=== PATIENT | female | born 1995 | race Two or more races ===

== ENCOUNTER 2016-09-10 11:20 | Emergency (ER) | payer SELFPAY ==
[~2016-09-10] VITALS: Ht 162.6 cm; Wt 61.2 kg
[2016-09-10 11:28] VITALS: BP 133/79
[2016-09-10] MEDS ORDERED: IV NS 0.9% 1,000 ML BAG IV ONE (12:30)
[2016-09-10] MEDS ORDERED: ONDANSETRON HCL/PF 4 MG/2 ML VIAL IV ONE (12:30)
[2016-09-10] MEDS ORDERED: KETOROLAC TROMETHAMINE INJ 30 MG/ML VIAL IV ONE (12:30)
[2016-09-10] MEDS ORDERED: diphenhydrAMINE HCL 50 MG/ML VIAL IV ONE (12:30)
[2016-09-10] MEDS ORDERED: ONDANSETRON HCL/PF 4 MG/2 ML VIAL ONE (12:31)
[2016-09-10] MEDS ORDERED: diphenhydrAMINE HCL 50 MG/ML VIAL ONE (12:31)
[2016-09-10] MEDS ORDERED: IV SET PRIMARY 1 EA INFUS.SET MC ONE (12:31)
[2016-09-10] MEDS ORDERED: IV NS 0.9% 1,000 ML ONE (12:31)
[2016-09-10] MEDS ORDERED: KETOROLAC TROMETHAMINE INJ 30 MG/ML VIAL ONE (12:31)
--- NOTE | 2016-09-10 12:55 | NUR ---
PT TO RADIOLOGY FOR HEAD CT VIA WHEELCHAIR.
== END 2016-09-10 14:03 | disposition home or self-care (01) ==
LOC: ER 11:20
DX: R51 Headache (principal)
CPT/HCPCS: 70450; 84703; 96374; 96375; 99284; A4606; J1200; J1885; J2405; J7030; Z7610

== ENCOUNTER 2017-03-23 20:01 | Emergency (ER) | payer MEDICAID ==
[~2017-03-23] VITALS: Ht 165.1 cm; Wt 61.2 kg
--- NOTE | 2017-03-23 22:15 | NUR ---
22 YO FEMALE BIB SELF; PT C/O MID ABD PAIN ON AND OFF X 1 WEEK AND STATES IT CABELLO. PT AMBULATED TO ER BED WITH STEADY GAIT, SKIN WARM AND DRY. RESP EVEN AND UNLABORED. AWAITING ORDERS FROM PROVIDER
[2017-03-23] MEDS ORDERED: ONDANSETRON HCL/PF 4 MG/2 ML VIAL ONE (22:28)
[2017-03-23] MEDS ORDERED: FAMOTIDINE/PF INJ 20 MG/2 ML VIAL IV ONE ×2 (22:29→22:30)
[2017-03-23] MEDS ORDERED: ONDANSETRON HCL/PF 4 MG/2 ML VIAL IVP ONE (22:30)
[2017-03-23] MEDS ORDERED: IV NS 0.9% 1,000 ML BAG IV ONE (22:30)
--- NOTE | 2017-03-23 22:31 | NUR ---
HOSPITAL PERSONNEL DIRECTOR AT BED SIDE FOR US
[2017-03-23 22:43] LABS: APPEARANCE,URINE CLEAR (CLEAR); BILIRUBIN,URINE NEGATIVE (NEGATIVE); BLOOD, URINE 2+ Ery/uL (NEGATIVE); COLOR,URINE YELLOW (YELLOW); KETONES,URINE NEGATIVE (NEGATIVE); LEUKOCYTE ESTERASE ,URINE NEGATIVE (NEGATIVE); NITRITE, URINE NEGATIVE (NEGATIVE); PROTEIN,URINE NEGATIVE (NEGATIVE); UGLUCOSE NEGATIVE (NEGATIVE); UROBILINOGEN,URINE 0.2 EU/dL (0.2)
[2017-03-23 22:54] LABS: BACTERIA,URINE None seen /HPF (None Seen); SQUAMOUS EPITHELIAL CELL,UR Moderate /HPF (None Seen)
--- NOTE | 2017-03-23 23:00 | NUR ---
20G RIGHT AC IV STARTED, BLOOD SAMPLE OBTAINED AND SENT TO LAB. MEDICATED PT ORDERED
[2017-03-23 23:03] LABS: BASOPHILS % (AUTO) 0.7 % (0.0-2.0); EOSINOPHILS # (AUTO) 0.1 /CMM (0.0-0.7); EOSINOPHILS % (AUTO) 1.4 % (0.0-6.0); HEMATOCRIT 42 % (33-45); HEMOGLOBIN 13.9 g/dL (11.5-14.8); LYMPHOCYTES # (AUTO) 2.1 /CMM (0.8-4.8); MEAN CORPUSCULAR HEMOGLOBIN 31 PG (26.0-33.0); MEAN CORPUSCULAR HGB CONC 34 g/dl (31.0-36.0); MEAN CORPUSCULAR VOLUME 92 fL (82-100); MONOCYTES # (AUTO) 0.6 /CMM (0.1-1.30); MONOCYTES % (AUTO) 9.5 % (2.0-12.0); NEUTROPHILS # (AUTO) 3.2 /CMM (1.8-8.9); NEUTROPHILS % (AUTO) 53.4 % (43.0-81.0); PLATELET COUNT (AUTO) 196 /CMM (150-450); RDW COEFFICIENT OF VARIATION 12.3 (11.5-15.0); WHITE BLOOD COUNT (AUTO) 6.1 K/uL (4.3-11.0)
[2017-03-23 23:16] LABS: CALCIUM, SERUM 9.3 mg/dL (8.5-10.1); CREATININE 0.7 mg/dL (0.6-1.3); POTASSIUM 3.8 mmol/L (3.5-5.1)
[2017-03-23 23:23] LABS: ALBUMIN 4.1 g/dL (3.4-5.0); BILIRUBIN,DIRECT 0.1 mg/dL (0.0-0.2); BILIRUBIN,TOTAL 0.3 mg/dL (0.2-1.0); TOTAL PROTEIN, SERUM 7.9 g/dL (6.4-8.2)
[2017-03-23] MEDS ORDERED: ACETAMINOPHEN ES 500 MG TABLET ONE (23:28)
[2017-03-23] MEDS ORDERED: ACETAMINOPHEN ES 500 MG TABLET PO ONE (23:30)
--- NOTE | 2017-03-23 23:33 | NUR ---
AMDIN 1GM OF TYLENOL.
[2017-03-23 23:50] VITALS: BP 119/75
--- NOTE | 2017-03-23 23:52 | NUR ---
Patient discharged to home in stable condition. Written and verbal after care instructions given. Patient verbalizes understanding of instruction.IV removed. Catheter intact and site benign. Pressure and 4x4 applied to site. No bleeding noted. PT ambulatory with a steady gait.
== END 2017-03-23 23:52 | disposition home or self-care (01) ==
LOC: ER 20:05
DX: K29.70 Gastritis, unspecified, without bleeding (principal); G43.909 Migraine, unspecified, not intractable, without status migrainosus
CPT/HCPCS: 36415; 76705; 80048; 80076; 81001; 83690; 84703; 85025; 96361; 96374; 96375; 99285; A4606; J2405; J3490; J7030; Z7610; 81000-TC

== ENCOUNTER 2017-08-12 13:52 | Emergency (ER) | payer BC ==
[~2017-08-12] VITALS: Ht 162.6 cm; Wt 59.0 kg
[2017-08-12 13:59] VITALS: BP 98/70
--- NOTE | 2017-08-12 14:30 | NUR ---
Patient eloped from facility. ER MD notified.
== END 2017-08-12 14:30 | disposition home or self-care (01) ==
LOC: ER 14:01
DX: Z53.21 Procedure and treatment not carried out due to patient leaving prior to being seen by health care provider (principal)
CPT/HCPCS: A4606; Z7610

== ENCOUNTER 2017-10-18 22:14 | Emergency (ER) | payer BC, MEDICAID ==
[~2017-10-18] VITALS: Ht 165.1 cm; Wt 56.7 kg
[2017-10-18 22:17] VITALS: BP 137/91
--- NOTE | 2017-10-18 22:47 | NUR ---
yas at bs.
== END 2017-10-18 23:23 | disposition home or self-care (01) ==
LOC: ER 22:19
DX: F41.9 Anxiety disorder, unspecified (principal); G43.909 Migraine, unspecified, not intractable, without status migrainosus
CPT/HCPCS: 71045-TC; A4606; Z7610

== ENCOUNTER 2018-01-24 22:56 | Emergency (ER) | payer MEDICAID ==
[~2018-01-24] VITALS: Ht 165.1 cm; Wt 57.6 kg
[2018-01-24] MEDS ORDERED: IV NS 0.9% 500 ML BAG IV ONE (23:30)
--- NOTE | 2018-01-24 23:30 | NUR ---
PT BIB SELF. PT C/O VAGINAL BLEEDING WITH CLOTS FOR 3WEEKS, ABD CRAMPING, AND NAUSEA. PT TOOK PILL 3 WEEKS AGO. PT AOX4. RESPIRATIONS EVEN AND UNLABORED. PT PLACED ON MONITOR
--- NOTE | 2018-01-24 23:45 | NUR ---
IV PLACED ON RIGHT AC. 18G. IV END TIME 0952
[2018-01-24 23:56] LABS: BASOPHILS % (AUTO) 0.8 % (0.0-2.0); EOSINOPHILS % (AUTO) 1.2 % (0.0-6.0); HEMATOCRIT 38 % (33-45); HEMOGLOBIN 12.7 g/dL (11.5-14.8); LYMPHOCYTES % (AUTO) 22.1 % (20.0-44.0); MEAN CORPUSCULAR HEMOGLOBIN 32 PG (26.0-33.0); MEAN CORPUSCULAR HGB CONC 34 g/dl (31.0-36.0); MEAN CORPUSCULAR VOLUME 96 fL (82-100); MONOCYTES # (AUTO) 0.3 /CMM (0.1-1.30); MONOCYTES % (AUTO) 7.2 % (2.0-12.0); NEUTROPHILS # (AUTO) 3.1 /CMM (1.8-8.9); NEUTROPHILS % (AUTO) 68.7 % (43.0-81.0); PLATELET COUNT (AUTO) 244 /CMM (150-450); RDW COEFFICIENT OF VARIATION 12.5 (11.5-15.0); RED BLOOD CELL COUNT(AUTO) 3.92 MIL/uL (4.0-5.2); WHITE BLOOD COUNT (AUTO) 4.5 K/uL (4.3-11.0)
[2018-01-24] MEDS ORDERED: ONDANSETRON HCL/PF 4 MG/2 ML VIAL ONE (23:56)
[2018-01-25] MEDS ORDERED: ONDANSETRON HCL/PF 4 MG/2 ML VIAL IV ONE
[2018-01-25 00:07] LABS: CALCIUM, SERUM 8.8 mg/dL (8.5-10.1); CREATININE 0.8 mg/dL (0.6-1.3); POTASSIUM 3.7 mmol/L (3.5-5.1)
[2018-01-25 00:11] LABS: INR 1.12 (0.87-1.13)
[2018-01-25 00:20] LABS: BILIRUBIN,DIRECT 0.1 mg/dL (0.0-0.2); BILIRUBIN,TOTAL 0.3 mg/dL (0.2-1.0); TOTAL PROTEIN, SERUM 7.7 g/dL (6.4-8.2)
--- NOTE | 2018-01-25 00:20 | NUR ---
URINE COLLECTED. LAB CALLED FOR FILLING LAYER UP
[2018-01-25 00:49] LABS: APPEARANCE,URINE CLEAR (CLEAR); BILIRUBIN,URINE NEGATIVE (NEGATIVE); BLOOD, URINE NEGATIVE Ery/uL (NEGATIVE); COLOR,URINE YELLOW (YELLOW); KETONES,URINE NEGATIVE (NEGATIVE); LEUKOCYTE ESTERASE ,URINE NEGATIVE (NEGATIVE); NITRITE, URINE NEGATIVE (NEGATIVE); PH,URINE 6.5 (5.0-8.0); PROTEIN,URINE NEGATIVE (NEGATIVE); UGLUCOSE NEGATIVE (NEGATIVE); UROBILINOGEN,URINE 0.2 EU/dL (0.2)
[2018-01-25] MEDS ORDERED: KETOROLAC TROMETHAMINE INJ 30 MG/ML VIAL IV ONE (01:00)
[2018-01-25] MEDS ORDERED: KETOROLAC TROMETHAMINE INJ 30 MG/ML VIAL ONE (01:16)
--- NOTE | 2018-01-25 01:17 | NUR ---
ULTRASOUND AT BEDSIDE
--- NOTE | 2018-01-25 02:35 | NUR ---
IV removed. Catheter intact and site benign. Pressure and 4x4 applied to site. No bleeding noted. Patient discharged to home in stable condition. Written and verbal after care instructions given. Patient verbalizes understanding of instruction. ambulatory with a steady gait noted. pt aaox4 no acute distress noted, resp even and unlabored. pt s/o at bedside to take pt home.
[2018-01-25 02:36] VITALS: BP 123/67
== END 2018-01-25 02:38 | disposition home or self-care (01) ==
LOC: ER 23:08
DX: N93.8 Other specified abnormal uterine and vaginal bleeding (principal); R42 Dizziness and giddiness
CPT/HCPCS: 36415; 76856; 80048; 80076; 81001; 84702; 85025; 85730; 86850; 96361; 96374; 96375; 99285; A4606; J1885; J2405; J7040; Z7610; 81000-TC

== ENCOUNTER 2018-06-04 22:51 | Emergency (ER) | payer BC, MEDICAID ==
[~2018-06-04] VITALS: Ht 165.1 cm; Wt 61.2 kg
[2018-06-04 22:59] VITALS: BP 114/64
== END 2018-06-04 23:36 | disposition home or self-care (01) ==
LOC: ER 22:54
DX: H00.023 Hordeolum internum right eye, unspecified eyelid (principal)

== ENCOUNTER 2018-09-04 18:20 | Emergency (ER) | payer BC ==
[~2018-09-04] VITALS: Ht 165.1 cm; Wt 54.9 kg
[2018-09-04 18:27] VITALS: BP 100/63
[2018-09-04 19:07] LABS: APPEARANCE,URINE Clear (CLEAR); BILIRUBIN,URINE Negative (NEGATIVE); BLOOD, URINE Small Ery/uL (NEGATIVE); COLOR,URINE Yellow (YELLOW); KETONES,URINE Negative (NEGATIVE); LEUKOCYTE ESTERASE ,URINE Negative (NEGATIVE); NITRITE, URINE Negative (NEGATIVE); PROTEIN,URINE Negative (NEGATIVE); UGLUCOSE Negative (NEGATIVE); UROBILINOGEN,URINE 0.2 EU/dL (0.2)
[2018-09-04 19:25] LABS: BACTERIA,URINE Few /HPF (None Seen); SQUAMOUS EPITHELIAL CELL,UR Many /HPF (None Seen); URINE AMORPHOUS URATE Few /HPF (None Seen); WBC,URINE 0-2 /HPF (0-3)
[2018-09-04] MEDS ORDERED: ACETAMINOPHEN ES 500 MG TABLET PO ONE (19:30)
[2018-09-04] MEDS ORDERED: ACETAMINOPHEN ES 500 MG TABLET ONE (19:33)
== END 2018-09-04 20:27 | disposition home or self-care (01) ==
LOC: ER 18:23
DX: N93.8 Other specified abnormal uterine and vaginal bleeding (principal); J03.90 Acute tonsillitis, unspecified
CPT/HCPCS: 81000-TC; 84703-TC; 86403-TC; 87070-TC; 87081-TC; 87110-TC; 87210-TC; 87491; 87591

== ENCOUNTER 2019-03-10 14:56 | Emergency (ER) | payer BC ==
[~2019-03-10] VITALS: Ht 165.1 cm; Wt 57.6 kg
--- NOTE | 2019-03-10 15:22 | NUR ---
PT C/O THROAT PAIN x 5 DAYS, AFEBRILE. PT STATED SHE HIT HER HEAD WHILE MOVING. PT AAOX4, VSS, BREATHING EVEN AND UNLABORED W/ NO ACUTE DISTRESS NOTED, AMBULATORY W/ STEADY GAIT. PT CONNECTED TO THE MONITOR. WILL CONTINUE TO MONITOR.
[2019-03-10 15:35] VITALS: BP 104/72
--- NOTE | 2019-03-10 15:36 | NUR ---
Patient discharged to home in stable condition. Written and verbal after care instructions given. Patient verbalizes understanding of instruction.
== END 2019-03-10 15:36 | disposition home or self-care (01) ==
LOC: ER 14:56
DX: J04.0 Acute laryngitis (principal)

== ENCOUNTER 2019-04-23 19:25 | Emergency (ER) | payer BC ==
[~2019-04-23] VITALS: Ht 165.1 cm; Wt 60.8 kg
[2019-04-23 19:56] VITALS: BP 123/68
== END 2019-04-23 20:14 | disposition home or self-care (01) ==
LOC: ER 19:35
DX: S06.0X0A Concussion without loss of consciousness, initial encounter (principal); M54.2 Cervicalgia; M54.5 Low back pain; V49.49XA Driver injured in collision with other motor vehicles in traffic accident, initial encounter; Y93.89 Activity, other specified; Y92.413 State road as the place of occurrence of the external cause; Y99.8 Other external cause status

== ENCOUNTER 2019-06-11 11:51 | Emergency (ER) | payer BC, MEDICAID ==
[~2019-06-11] VITALS: Ht 165.1 cm; Wt 56.7 kg
[2019-06-11 12:41] LABS: APPEARANCE,URINE Clear (CLEAR); BILIRUBIN,URINE Negative (NEGATIVE); BLOOD, URINE Negative Ery/uL (NEGATIVE); COLOR,URINE Yellow (YELLOW); KETONES,URINE Negative (NEGATIVE); LEUKOCYTE ESTERASE ,URINE Negative (NEGATIVE); NITRITE, URINE Negative (NEGATIVE); PROTEIN,URINE Negative (NEGATIVE); UGLUCOSE Negative (NEGATIVE); UROBILINOGEN,URINE 0.2 EU/dL (0.2)
[2019-06-11 12:45] LABS: BASOPHILS # (AUTO) 0.1 /CMM (0.0-0.2); BASOPHILS % (AUTO) 3.2 % (0.0-2.0); HEMATOCRIT 43 % (33-45); HEMOGLOBIN 14.4 g/dL (11.5-14.8); LYMPHOCYTES # (AUTO) 0.9 /CMM (0.8-4.8); LYMPHOCYTES % (AUTO) 20.9 % (20.0-44.0); MEAN CORPUSCULAR HGB CONC 33 g/dl (31.0-36.0); MEAN CORPUSCULAR VOLUME 96 fL (82-100); MONOCYTES # (AUTO) 0.3 /CMM (0.1-1.30); NEUTROPHILS # (AUTO) 2.8 /CMM (1.8-8.9); NEUTROPHILS % (AUTO) 66.9 % (43.0-81.0); PLATELET COUNT (AUTO) 235 /CMM (150-450); RED BLOOD CELL COUNT(AUTO) 4.53 MIL/uL (4.0-5.2); WHITE BLOOD COUNT (AUTO) 4.2 K/uL (4.3-11.0)
[2019-06-11 12:55] LABS: CALCIUM, SERUM 9.2 mg/dL (8.5-10.1); CREATININE 0.7 mg/dL (0.6-1.3); POTASSIUM 3.9 mmol/L (3.5-5.1)
--- NOTE | 2019-06-11 12:55 | NUR ---
US TECH AT BEDSIDE.
[2019-06-11 13:30] VITALS: BP 115/59
== END 2019-06-11 13:31 | disposition home or self-care (01) ==
LOC: ER 11:51
DX: O20.0 Threatened abortion (principal); N64.4 Mastodynia; Z3A.00 Weeks of gestation of pregnancy not specified
CPT/HCPCS: 36415; 76856-TC; 80048-TC; 81000-TC; 84702-TC; 85025-TC

== ENCOUNTER 2019-06-14 18:57 | Inpatient (IN) | payer MEDICAID ==
[~2019-06-14] VITALS: Ht 167.6 cm; Wt 59.0 kg
[2019-06-14] MEDS ORDERED: IV NS 0.9% 1,000 ML BAG IV ONE (20:00)
[2019-06-14] MEDS ORDERED: ONDANSETRON HCL/PF 4 MG/2 ML VIAL IVP ONE (20:00)
[2019-06-14] MEDS ORDERED: MORPHINE SULFATE INJ 2 MG/ML DISP.SYRIN IV ONE ×2 (20:00→20:30)
[2019-06-14] MEDS ORDERED: MORPHINE SULFATE INJ 4 MG/ML DISP.SYRIN ONE ×2 (20:02→21:48)
[2019-06-14] MEDS ORDERED: ONDANSETRON HCL/PF 4 MG/2 ML VIAL ONE (20:02)
[2019-06-14 20:05] LABS: BASOPHILS # (AUTO) 0.1 /CMM (0.0-0.2); BASOPHILS % (AUTO) 1.4 % (0.0-2.0); HEMATOCRIT 43 % (33-45); HEMOGLOBIN 14.3 g/dL (11.5-14.8); LYMPHOCYTES # (AUTO) 1.4 /CMM (0.8-4.8); LYMPHOCYTES % (AUTO) 20.6 % (20.0-44.0); MEAN CORPUSCULAR HGB CONC 33 g/dl (31.0-36.0); MEAN CORPUSCULAR VOLUME 95 fL (82-100); MONOCYTES # (AUTO) 0.6 /CMM (0.1-1.30); MONOCYTES % (AUTO) 8.8 % (2.0-12.0); NEUTROPHILS # (AUTO) 4.7 /CMM (1.8-8.9); NEUTROPHILS % (AUTO) 68.2 % (43.0-81.0); PLATELET COUNT (AUTO) 239 /CMM (150-450); RED BLOOD CELL COUNT(AUTO) 4.51 MIL/uL (4.0-5.2); WHITE BLOOD COUNT (AUTO) 6.9 K/uL (4.3-11.0)
--- NOTE | 2019-06-14 20:11 | NUR ---
BIBS W/ BOYFRIEND. TO ER BED 16. AAOX4. NO RESP DISTRESS NOTED/ AMBULATORY. 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 PT REPORTS THAT PAIN IS SHARP RADIATING DOWN TO LEG AND BACK WHICH IS CAUSING HER BACK ACHE. PT RATES HER PAIN 9/10. PT REPORTS POSSIBLE , LAST MENSTRATION WAS 5 WEKS AGO. MANUELA OROURKE WAS AT BEDSIDE FOR EVAL. ORDERS RECEIVED, NOTD AND CARRIED OUT. IV LINE OBTIANED ON THE R AC 20G. BLOOD DRAWN AND GIVENT O PROCESS MECHANIC AT BEDSIDE. URINE SENT O LAB WELL
[2019-06-14 20:12] LABS: CREATININE 0.7 mg/dL (0.6-1.3); POTASSIUM 4.3 mmol/L (3.5-5.1)
[2019-06-14 20:17] LABS: APPEARANCE,URINE Clear (CLEAR); BILIRUBIN,URINE Negative (NEGATIVE); BLOOD, URINE Negative Ery/uL (NEGATIVE); COLOR,URINE Yellow (YELLOW); KETONES,URINE Negative (NEGATIVE); LEUKOCYTE ESTERASE ,URINE Negative (NEGATIVE); NITRITE, URINE Negative (NEGATIVE); PROTEIN,URINE Negative (NEGATIVE); UGLUCOSE Negative (NEGATIVE); UROBILINOGEN,URINE 0.2 EU/dL (0.2)
[2019-06-14] MEDS ORDERED: ACETAMINOPHEN ES 500 MG TABLET ONE (23:28)
[2019-06-14] MEDS ORDERED: Z GUARD REMEDY 2 OZ OINT TP PRN (23:30)
[2019-06-14] MEDS ORDERED: MAGNESIUM HYDROXIDE 30 ML UDC PO PRN (23:30)
[2019-06-14] MEDS ORDERED: ACETAMINOPHEN ES 500 MG TABLET PO ONE (23:30)
--- NOTE | 2019-06-14 23:35 | NUR ---
REPORT GIVEN TO SAIRA HURST FOR AXEL.
--- NOTE | 2019-06-14 23:45 | NUR ---
PT TRANSPORTED TO UNIT ON [facility] BY EMT. PT STABLE FOR TRANSPORT. NAD NOTED
[2019-06-14 23:50] VITALS: BP 115/77
[2019-06-15] MEDS ORDERED: MORPHINE SULFATE INJ 2 MG/ML DISP.SYRIN IV SCH
--- NOTE | 2019-06-15 | NUR ---
RECEIVE PT FROM [facility] AT 2340 PT A/O X4 IN NO APPARENT DISTRESS AT AT THIS TIME. HEAD TO TOE ASSESSMENT IS DONE SKIN IS INTACT. AM CARE RENDERED. VS STABLE. KEPT CLEAN, DRY AND COMFORTABLE. WILL CONTINUE TO MONITOR
[2019-06-15] MEDS: IV NS 0.9% 1,000 ML IV PRN (00:06)
--- NOTE | 2019-06-15 00:15 | NUR ---
BRITTNEY PEREZ PT COMPLAINING MORPHINE DOESN'T DO ANYTHING TO HER AND REQUESTING IF WE COULD CHANGE HER PAIN MEDICATION. WILL CONTINUE TO MONITOR PT
[2019-06-15] MEDS: HYDROMORPHONE 1 MG/1 ML DISP.SYRIN IV PRN ×5 (01:00→22:39)
[2019-06-15] MEDS: ONDANSETRON HCL/PF 4 MG/2 ML VIAL IVP PRN ×3 (01:05→18:29)
--- NOTE | 2019-06-15 01:36 | NUR ---
HOSPITALIST CALLED BACK PER HOSPITALIST ORDERED DILAUDID 1 MG IVP Q6HR PRN PAIN LEVEL 8-10 AND D/C MORPHINE 2MG IVP Q6HR READ BACK AND VERIFIED ORDERS NOTED AND CARRIED OUT
[2019-06-15] MEDS: ACETAMINOPHEN 325 MG TABLET PO PRN ×3 (03:21→20:29)
--- NOTE | 2019-06-15 03:30 | NUR ---
SEEN BY MS. PEREZ AT BEDSIDE PT ASKED IF SHE COULD CHANGE FREQUENCY OF IVP DILAUDID MEDICATION. PER ANA "NO AT THIS TIME". NOTED. EXPLAINED RISKS AND BENEFITS TO THE PT. PT VERBALIZED UNDERSTANDING
[2019-06-15] MEDS ORDERED: CT SWABBABLE VALVE TRANS SET 1 EA INFUS.SET MC ONE (03:39)
[2019-06-15] MEDS ORDERED: IOHEXOL-300 100 ML VIAL IV ONE (03:39)
--- NOTE | 2019-06-15 03:55 | NUR ---
FF. UP WITH CT STAT ORER PER CT RADIOLOGY KASSY THEY WILL CALL TO CELLAR PUMPER THE PT.
--- NOTE | 2019-06-15 06:32 | NUR ---
PT ASLEEP AND EASILY AWAKEN, STABLE AND NOT IN DISTRESS, MONITORED FOR PAIN. KEPT CLEAN, DRY AND COMFORTABLE. NOTED WITH SCANT VAGINAL BLEEDING HOSPITALIST AWARE. AWAITING CT SCAM WITH CONTRAST RESULT. SAFETY MEASURES AT ALL TIMES. WILL ENDORSE NEXT SHIFT
[2019-06-15 06:43] LABS: BASOPHILS % (AUTO) 0.7 % (0.0-2.0); EOSINOPHILS % (AUTO) 1.8 % (0.0-6.0); HEMATOCRIT 38 % (33-45); HEMOGLOBIN 12.9 g/dL (11.5-14.8); LYMPHOCYTES # (AUTO) 1.5 /CMM (0.8-4.8); LYMPHOCYTES % (AUTO) 25.4 % (20.0-44.0); MEAN CORPUSCULAR HGB CONC 34 g/dl (31.0-36.0); MEAN CORPUSCULAR VOLUME 95 fL (82-100); MONOCYTES # (AUTO) 0.6 /CMM (0.1-1.30); MONOCYTES % (AUTO) 10.3 % (2.0-12.0); NEUTROPHILS # (AUTO) 3.6 /CMM (1.8-8.9); NEUTROPHILS % (AUTO) 61.8 % (43.0-81.0); PLATELET COUNT (AUTO) 202 /CMM (150-450); RED BLOOD CELL COUNT(AUTO) 4.05 MIL/uL (4.0-5.2); WHITE BLOOD COUNT (AUTO) 5.7 K/uL (4.3-11.0)
--- NOTE | 2019-06-15 07:00 | NUR ---
BP 109/97 P 67 R 19 02 AT 100% R.A T 97.7
[2019-06-15 07:03] LABS: CALCIUM, SERUM 8.4 mg/dL (8.5-10.1); CREATININE 0.7 mg/dL (0.6-1.3); MAGNESIUM 2.1 mg/dL (1.8-2.4); PHOSPHORUS 3.7 mg/dL (2.5-4.9); POTASSIUM 3.5 mmol/L (3.5-5.1)
--- NOTE | 2019-06-15 07:21 | NUR ---
RN OPENING NOTE PT WAS RECEIVED IN BED AT LOWEST AND LOCKED POSITION WITH SIDE RAILS UP X2, A/OX4 BREATHING EVEN AND UNLABORED ON RA, NO S/S OF ANY DISTRESS BUT STILL HAS SOME COMPLAINTS OF PAIN AT THIS TIME, IV IS PATENT AND INTACT, AWAITING TO BE SEEN BY , SAFETY PRECAUTIONS IN PLACE, CALL LIGHT IN REACH, WILL MONITOR ACCORDINGLY
[2019-06-15 08:00] VITALS: BP 98/60
--- NOTE | 2019-06-15 09:30 | NUR ---
RN NOTE HOSPITALIST MALIKA FRIAS MADE AWARE OF PT STILL HAVING NAUSEA AND VOMITING AFTER ZOFRAN GIVEN AT 0700, ORDER RECEIVED FOR ONE TIME DOSE OF ZOFRAN 4MG, WILL IMPLEMENT AND CARRY OUT
[2019-06-15] MEDS ORDERED: ONDANSETRON HCL/PF 4 MG/2 ML VIAL IV PRN (10:30)
[2019-06-15 16:00] VITALS: BP 112/56
--- NOTE | 2019-06-15 17:55 | NUR ---
RN NOTE HOSPITALIST MALIKA FRIAS MADE AWARE OF PT STILL HAVING PAIN, ORDER TO CHANGE DILAUDID TO Q4H INSTEAD GIVEN, WILL IMPLEMENT AND CARRY OUT
--- NOTE | 2019-06-15 19:06 | NUR ---
RN CLOSING NOTE PT IN BED AT LOWEST AND LOCKED POSITION WITH SIDE RAILS UP X2, A/OX4 BREATHING EVEN AND UNLABORED ON RA, NO S/S OF ANY DISTRESS, PAIN MEDS GIVEN FOR COMPLAINTS OF PAIN, IV IS PATENT AND INTACT, AWAITING TO BE SEEN BY , SAFETY PRECAUTIONS IN PLACE, CALL LIGHT IN REACH, ALL NEEDS ATTENDED TO, WILL ENDORSE TO NIGHT RN FOR AXEL.
--- NOTE | 2019-06-15 19:25 | NUR ---
RN OPEN NOTES RECEIVED PATIENT AWAKE IN BED WITH FAMILY AT BEDSIDE. A/OX4. NO SIGNS OF DISTRESS OR DISCOMFORT. BREATHING EVEN AND UNLABORED. STATES LL ABD 12/11, AT THIS TIME, PATIENT HAS RECEIVED PRN PAIN MEDS. IV ACCESS IN RAC WITH NS INFUSING, PATENT AND INTACT, NO SIGNS OF REDNESS OR INFILTRATION. BED IN LOW LOCKED POSITION WITH SIDE RAILS X2. CALL LIGHT WITHIN REACH. WILL CONTINUE TO MONITOR.
[2019-06-15 20:44] VITALS: BP 101/62
--- NOTE | 2019-06-15 22:39 | NUR ---
RN NOTES ADMINISTERED DILAUDID 1MG ORDERED FOR LLQ PAIN 11/11, AT PATIENT REQUEST. VSS. WILL CONTINUE TO MONITOR.
[2019-06-16 06:24] LABS: BASOPHILS % (AUTO) 0.9 % (0.0-2.0); EOSINOPHILS % (AUTO) 2.5 % (0.0-6.0); HEMATOCRIT 36 % (33-45); HEMOGLOBIN 12.2 g/dL (11.5-14.8); LYMPHOCYTES # (AUTO) 1.4 /CMM (0.8-4.8); LYMPHOCYTES % (AUTO) 32.4 % (20.0-44.0); MEAN CORPUSCULAR HGB CONC 34 g/dl (31.0-36.0); MEAN CORPUSCULAR VOLUME 95 fL (82-100); MONOCYTES # (AUTO) 0.3 /CMM (0.1-1.30); MONOCYTES % (AUTO) 7.9 % (2.0-12.0); NEUTROPHILS # (AUTO) 2.4 /CMM (1.8-8.9); NEUTROPHILS % (AUTO) 56.3 % (43.0-81.0); PLATELET COUNT (AUTO) 200 /CMM (150-450); RED BLOOD CELL COUNT(AUTO) 3.79 MIL/uL (4.0-5.2); WHITE BLOOD COUNT (AUTO) 4.2 K/uL (4.3-11.0)
[2019-06-16 06:47] LABS: CALCIUM, SERUM 8.7 mg/dL (8.5-10.1); CREATININE 0.6 mg/dL (0.6-1.3); POTASSIUM 3.8 mmol/L (3.5-5.1)
--- NOTE | 2019-06-16 07:09 | NUR ---
RN CLOSING NOTES PATIENT AWAKE LAYING IN BED. A/OX4. NO SIGNS OF DISTRESS OR DISCOMFORT. BREATHING EVEN AND UNLABORED. STATES LL ABD 5/10, AT THIS TIME AND TOLERABLE. IV ACCESS IN RAC WITH NS INFUSING, PATENT AND INTACT, NO SIGNS OF REDNESS OR INFILTRATION. ALL NEEDS MET. NO SIGNIFICANT CHANGES THROUGH THE NIGHT. BED IN LOW LOCKED POSITION WITH SIDE RAILS X2. CALL LIGHT WITHIN REACH. WILL ENDORSE TO AM SHIFT FOR AXEL.
[2019-06-16 08:00] VITALS: BP 103/69
--- NOTE | 2019-06-16 08:00 | NUR ---
RN NOTES RECEIVED PATIENT IN THE ROOM A/O X4, FEMALE ON ABNORMAL , BLOODY SPOTS ON PERINEAL PAD, LOWER ABDOMINAL PAIN , AND NAUSEATED. INFUSING NS AT 100 ML/HR ON RIGHT AC AREA INTACT. CALL LIGHT WITHIN TO REACH, SAFETY PRECAUTION MAINTAINED ALL THE TIME.
[2019-06-16] MEDS: ONDANSETRON HCL/PF 4 MG/2 ML VIAL IVP PRN ×2 (09:44→16:07)
[2019-06-16] MEDS: ACETAMINOPHEN 325 MG TABLET PO PRN (09:44)
--- NOTE | 2019-06-16 09:44 | NUR ---
rn notes administered Tylenol 650 mg po prn for pain, and Zofran 4 mg/ml iv push for nausea per patient request, continued monitoring.
--- NOTE | 2019-06-16 10:00 | NUR ---
RN NOTES PATIENT WAS COMPLAINING OF DISCHARGE FROM VAGINAL [place] TISSUE AND BLOOD SPOTTING. SEEN PATIENT BY DNP HOSPITALIST ALTAGRACIA. PATIENT POSSIBLE TO TRANSFER ANOTHER HOSPITAL. CONTINUED MONITORING. ALSO WAITING GYNECOLOGY CONSULTATION AFTERNOON Dr HURT.
[2019-06-16] MEDS: METOCLOPRAMIDE HCL 10 MG/2 ML VIAL IV PRN ×2 (11:57→23:40)
[2019-06-16] MEDS: HYDROMORPHONE 1 MG/1 ML DISP.SYRIN IV PRN ×3 (11:57→23:40)
--- NOTE | 2019-06-16 11:57 | NUR ---
rn notes administered Dilaudid 1 mg/ml iv push for pain lower abdomen 12/11, and Reglan 10 mg/ml iv push for nausea, per patient request. v/s taken bp 103/67, p-64, continued monitoring.
--- NOTE | 2019-06-16 13:30 | NUR ---
RN NOTES MEDICATION WERE ADMINISTERED FOR PAIN, AND NAUSEA EFFECTIVE. PATIENT RESTING IN THE BED. CALL LIGHT WITHIN TO REACH.
--- NOTE | 2019-06-16 14:57 | NUR ---
RN NOTES CALLED Dr HURT OFFICE, AND MD HURT WILL FOLLOW PATIENT AFTER WORKING OFFICE HOURS. DNP HOSPITALIST ALTAGRACIA AWARE OF.
[2019-06-16 16:00] VITALS: BP 110/51
--- NOTE | 2019-06-16 16:07 | NUR ---
rn notes administered Dilaudid 1 mg/ml iv push for pain lower left abdomen 12/11 , and Zofran 4 mg/ml iv push for nausea per patient request, v/s taken bp- 100/59, p-63, continued monitoring.
--- NOTE | 2019-06-16 18:00 | NUR ---
RN NOTES PATIENT IN THE BED MEDICATION WERE ADMINISTERED FOR PAIN, AND NAUSEA EFFECTIVE, V/S STABLE.PATIENT SIGN CONSENT FOR SURGERY. INFUSING NS AT 100ML/HR ON LEFT AC AREA INTACT, CALL LIGHT WITHIN TO REACH, FAMILY NEXT TO THE BED. ENDORSED ONCOMING NURSE FOLLOW PLAN OF CARE.
--- NOTE | 2019-06-16 19:30 | NUR ---
RN OPEN NOTES RECEIVED PATIENT AWAKE IN BED WITH FAMILY AT BEDSIDE. A/OX4. NO SIGNS OF DISTRESS OR DISCOMFORT. BREATHING EVEN AND UNLABORED. STATES LL ABD 5/10 AND TOLERABLE AT THIS TIME. IV ACCESS IN LAC WITH NS INFUSING, PATENT AND INTACT, NO SIGNS OF REDNESS OR INFILTRATION. BED IN LOW LOCKED POSITION WITH SIDE RAILS X2. CALL LIGHT WITHIN REACH. WILL CONTINUE TO MONITOR.
[2019-06-16 20:38] VITALS: BP 99/64
[2019-06-16 21:03] LABS: APPEARANCE,URINE CLEAR (CLEAR); BILIRUBIN,URINE NEGATIVE (NEGATIVE); BLOOD, URINE MODERATE Ery/uL (NEGATIVE); COLOR,URINE YELLOW (YELLOW); KETONES,URINE 15 (NEGATIVE); LEUKOCYTE ESTERASE ,URINE NEGATIVE (NEGATIVE); NITRITE, URINE NEGATIVE (NEGATIVE); PROTEIN,URINE NEGATIVE (NEGATIVE); UGLUCOSE NEGATIVE (NEGATIVE); UROBILINOGEN,URINE 0.2 EU/dL (0.2)
[2019-06-16 21:29] LABS: BACTERIA,URINE 1+ /HPF (None Seen); SQUAMOUS EPITHELIAL CELL,UR Few /HPF (None Seen); WBC,URINE 0-2 /HPF (0-3)
[2019-06-16] MEDS: IV NS 0.9% 1,000 ML IV PRN (23:42)
--- NOTE | 2019-06-17 07:29 | NUR ---
RN CLOSING NOTES PATIENT RESTING COMFORTABLY IN BED WITH FAMILY AT BEDSIDE. A/OX4. NO SIGNS OF DISTRESS OR DISCOMFORT. BREATHING EVEN AND UNLABORED. DENIES ANY PAIN AT THIS TIME. IV ACCESS IN LAC WITH NS INFUSING, PATENT AND INTACT, NO SIGNS OF REDNESS OR INFILTRATION. ALL NEEDS MET. NO SIGNIFICANT CHANGES THROUGH THE NIGHT. BED IN LOW LOCKED POSITION WITH SIDE RAILS X2. CALL LIGHT WITHIN REACH. ENDORSED TO AM SHIFT FOR AXEL.
[2019-06-17 07:43] LABS: BASOPHILS % (AUTO) 0.8 % (0.0-2.0); EOSINOPHILS % (AUTO) 3.1 % (0.0-6.0); HEMATOCRIT 37 % (33-45); HEMOGLOBIN 12.5 g/dL (11.5-14.8); LYMPHOCYTES # (AUTO) 1.6 /CMM (0.8-4.8); LYMPHOCYTES % (AUTO) 26.5 % (20.0-44.0); MEAN CORPUSCULAR HGB CONC 34 g/dl (31.0-36.0); MEAN CORPUSCULAR VOLUME 94 fL (82-100); MONOCYTES # (AUTO) 0.5 /CMM (0.1-1.30); MONOCYTES % (AUTO) 8.2 % (2.0-12.0); NEUTROPHILS # (AUTO) 3.6 /CMM (1.8-8.9); NEUTROPHILS % (AUTO) 61.4 % (43.0-81.0); PLATELET COUNT (AUTO) 197 /CMM (150-450); WHITE BLOOD COUNT (AUTO) 5.9 K/uL (4.3-11.0)
[2019-06-17 07:49] VITALS: BP 96/53
--- NOTE | 2019-06-17 07:51 | NUR ---
rn notes RECEIVED PATIENT IN THE BED A/OX4, WAS COMPLAINING OF LOWER LEFT ABDOMINAL PAIN 6/10 PER PAIN SCALE. V/S TAKEN BP 96/53, P-71, R-19, T-98.3. PATIENT HAS NO ACUTE RESPIRATORY DISTRESS. WILL STEEL TURNER FOR SURGERY 0830 PER OR SCHEDULED. PATIENT HAS VAGINAL BLOOD SPOT ON PERINEAL PADS. BOYFRIEND NEXT TO THE BED. IV ACCESS ON LEFT AC AREA INTACT. SAFETY PRECAUTION MAINTAINED ALL THE TIME.
[2019-06-17 07:53] LABS: CALCIUM, SERUM 8.3 mg/dL (8.5-10.1); CREATININE 0.6 mg/dL (0.6-1.3); PHOSPHORUS 4.3 mg/dL (2.5-4.9); POTASSIUM 3.9 mmol/L (3.5-5.1)
[2019-06-17 08:00] VITALS: BP 96/53
--- NOTE | 2019-06-17 08:28 | NUR ---
RN NOTES PATIENT SOFTWARE SPECIALIST SURGERY AT THIS TIME, STABLE, V/S WNL.
[2019-06-17] MEDS ORDERED: SCOPOLAMINE HBR 1 EA PATCH.TD72 TD ONE (08:36)
[2019-06-17] MEDS ORDERED: ROCURONIUM BROMIDE 50 MG/5 ML ONE (08:43)
[2019-06-17] MEDS ORDERED: HYDROMORPHONE INJ 2 MG/ML DISP.SYRIN ONE (08:43)
[2019-06-17] MEDS ORDERED: MIDAZOLAM HCL 2 MG/2ML VIAL ONE (08:43)
[2019-06-17] MEDS ORDERED: SUCCINYLCHOLINE CHLORIDE 20 MG/ML VIAL ONE (08:43)
[2019-06-17] MEDS ORDERED: METOCLOPRAMIDE HCL 10 MG/2 ML VIAL ONE (08:46)
[2019-06-17] MEDS ORDERED: KETOROLAC TROMETHAMINE INJ 30 MG/ML VIAL ONE (08:52)
[2019-06-17] MEDS ORDERED: BUPIVACAINE MPF 0.5% W/EPI INJ 30 ML VIAL ONE (09:28)
--- NOTE | 2019-06-17 10:39 | NUR ---
RN NOTES PATIENT BACK FROM SURGERY AT THIS TIME NO ACUTE RESPIRATORY DISTRESS, V/S TAKEN BP106/61, P-72, R-19, O2-93 ROOM AIR, T-98. PATIENT COMPLAINING OF PAIN LOWER ABDOMEN 5/10 PER PAIN SCALE. INFUSING NS AT 100 MG/ML INTACT ON LEFT AC AREA. CALL LIGHT WITHIN TO REACH. CONTINUED MONITORING.
[2019-06-17] MEDS: METOCLOPRAMIDE HCL 10 MG/2 ML VIAL IV PRN (10:49)
--- NOTE | 2019-06-17 10:49 | NUR ---
RN NOTES administered Reglan 10 mg iv push for nausea, and Dilaudid 1 mg/ml iv push for pian 6/10 lower abdomen per patient request, v/s taken bp 106/65, p-71, continued monitoring.
[2019-06-17] MEDS ORDERED: IV LR 1000 ML 1,000 ML IV PRN (11:00)
[2019-06-17] MEDS: HYDROCODONE/APAP 5/325MG 1 EACH TABLET PO PRN ×2 (13:21→22:00)
--- NOTE | 2019-06-17 13:21 | NUR ---
RN NOTES ADMINISTERED DILAUDID 5/325 MG PO PRN FOR LOWER ABDOMINAL PAIN 11/11 PER PATIENT REQUEST, V/S TAKEN BP-105/67, P-73, PATIENT TOLERATING LUNCH WELL. CALL LIGHT WITHIN TO REACH, SAFETY PRECAUTION MAINTAINED ALL THE TIME.
[2019-06-17 16:00] VITALS: BP_SYST 93; BP_SYST 95; BP_DIAS 57; BP_DIAS 58
--- NOTE | 2019-06-17 18:00 | NUR ---
RN NOTES PATIENT IN THE BED STABLE, URINATED AFTER SURGERY, ABDOMINAL DRESSING HAS BLOODY DISCHARGE BECAUSE OF PRESSURE GOING BATHROOM, NO BLEEDING MONITORING. V/S 95/58, P-76, PATIENT AMBULATING IN THE HALLWAY, WAS COMPLAINING OF PAIN 3/10 ON LOWER ABDOMEN. IV ACCESS ON LEFT AC AREA INTACT, TOLERATED DINNER 25%, [id number] PRECAUTION MAINTAINED ALL THE TIME. ENDORSED ONCOMING NURSE FOLLOW PLAN OF CARE.
--- NOTE | 2019-06-17 19:40 | NUR ---
RN OPENING NOTES RECEIVED PATIENT FROM SAIRA ARIAS. PATIENT AWAKE IN BED. A/O X 4. PATIENT ABLE TO VERBALIZE NEEDS. NO SIGNS OF DISTRESS, NO SHORTNESS OF BREATH NOTED, BREATHING EVEN AND UNLABORED. NO COMPLAINTS OF PAIN OR DISCOMFORT AT THIS TIME. IV SITE LAC, INTACT, PATENT, NO SIGNS OF INFECTION/INFILTRATION, FLUSHED. SAFETY PRECAUTIONS IMPLEMENTED; CALL LIGHT WITHIN REACH, BED LOW, BED LOCKED, BILATERAL UPPER SIDE RAILS UP. WILL CONTINUE TO MONITOR.
[2019-06-17 20:00] VITALS: BP 95/57
[2019-06-17] MEDS: ACETAMINOPHEN 325 MG TABLET PO PRN (20:33)
[2019-06-17 21:55] VITALS: BP 141/88
--- NOTE | 2019-06-17 22:55 | NUR ---
RN NOTES [id number] PAGED EMR SPECIALIST, OMAIRA VINSON. INFORMED EMR SPECIALIST, KAREL, PATIENT IS EXPERIENCING SEVERE PAIN AT THIS TIME. HE ORDERED MORPHINE 2MG IVP ONCE. CARRYING OUT ORDERS NOW.
[2019-06-17] MEDS ORDERED: MORPHINE SULFATE INJ 2 MG/ML DISP.SYRIN IV PRN (23:00)
[2019-06-17 23:20] VITALS: BP 128/75
[2019-06-18] MEDS: METOCLOPRAMIDE HCL 10 MG/2 ML VIAL IV PRN (00:15)
--- NOTE | 2019-06-18 05:21 | NUR ---
RN NOTES PATIENT REFUSED BLOOD DRAW FROM LAB. EXPLAINED THE RISKS AND BENEFITS BUT PATIENT INSISTS ON REFUSING.
--- NOTE | 2019-06-18 06:55 | NUR ---
RN CLOSING NOTES PATIENT IS CURRENTLY ASLEEP, EASILY AWAKENED. NO SIGNS OF RESPIRATORY DISTRESS, NO SHORTNESS OF BREATH NOTED, RESPIRATIONS EVEN AND UNLABORED. NO SIGNS OF FACIAL GRIMACING INDICATING PAIN OR DISCOMFORT AT THIS TIME. IV SITE LAC, INTACT AND PATENT, NO SIGNS OF INFECTION/INFILTRATION, FLUSHED. PATIENT KEPT CLEAN, DRY, AND COMFORTABLE. NO ACTIVE BLEEDING NOTED TO SITES. ALL NEEDS MET ON SHIFT. ALL DUE MEDS GIVEN ORDERED WITH NO ADVERSE EFFECTS. SAFETY PRECAUTIONS IMPLEMENTED; CALL LIGHT WITHIN REACH, BED LOW, BED LOCKED, BILATERAL UPPER SIDE RAILS UP. WILL ENDORSE TO DAY SHIFT NURSE FOR CONTINUITY OF CARE.
[2019-06-18 08:00] VITALS: BP 98/55
--- NOTE | 2019-06-18 08:24 | NUR ---
RN OPENING NOTE PT WAS RECEIVED IN BED AT LOWEST AND LOCKED POSITION WITH SIDE RAILS UP X2, A/OX4 BREATHING EVEN AND UNLABORED ON RA, NO S/S OF ANY DISTRESS BUT STILL HAS SOME COMPLAINTS OF PAIN AT THIS TIME, IV IS PATENT AND INTACT,, SAFETY PRECAUTIONS IN PLACE, CALL LIGHT IN REACH, WILL MONITOR ACCORDINGLY
[2019-06-18] MEDS ORDERED: MORPHINE SULFATE INJ 2 MG/ML DISP.SYRIN IV ONE (09:30)
[2019-06-18] MEDS: ONDANSETRON HCL/PF 4 MG/2 ML VIAL IVP PRN (09:31)
[2019-06-18] MEDS: ACETAMINOPHEN 325 MG TABLET PO PRN (09:35)
[2019-06-18] MEDS: HYDROCODONE/APAP 5/325MG 1 EACH TABLET PO PRN ×2 (11:34→15:48)
--- NOTE | 2019-06-18 13:26 | NUR ---
RN NOTE OFFICE CALLED REGARDING WHETHER PT IS CLEARED FOR DISCHARGE, CALL RECEIVED BACK FROM AND INFORMED THAT PT IS CLEARED FOR DISCHARGE. WILL INFORM .
[2019-06-18] MEDS ORDERED: OXYC-128 PO (16:25)
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
== END 2019-06-18 17:00 | disposition home or self-care (01) | DRG 545 ==
LOC: ER 18:58 → MEDSG2 23:24
PROVIDERS: ADMIT Nurse Practitioner Acute Care; ATTEND Family Medicine
PROC: 10T24ZZ Resection of Products of Conception, Ectopic, Percutaneous Endoscopic Approach (ICD-10-PCS; principal; 2019-06-17)
DX: O00.102 Left tubal pregnancy without intrauterine pregnancy (principal); K66.1 Hemoperitoneum; Z3A.01 Less than 8 weeks gestation of pregnancy
CPT/HCPCS: 36415; 76770-TC; 76856-TC; 80048-TC; 80061-TC; 81000-TC; 83690-TC; 83735-TC; 84100-TC; 84702-TC; 84703-TC; 85025-TC; 85610-TC; 85730-TC; 86850-TC; 87081-TC; 88305-TC; A6402; G0378; J0330; J0690; J1100; J1170; J1885; J2250; J2270; J2405; J2704; J2710; J2765; J3490; J7030; J7120; Q9967

== ENCOUNTER 2019-07-08 08:53 | Emergency (ER) | payer MEDICAID ==
[~2019-07-08] VITALS: Ht 165.1 cm; Wt 56.7 kg
[~2019-07-08 08:53] MED LIST: OXYC-128 PO
--- NOTE | 2019-07-08 09:00 | NUR ---
COUGH AND CONGESTION AND FEVER X 4 DAYS. PATIENT A/OX4, BREATHING EVEN AND UNLABORED, NO SOB NOTED.
--- NOTE | 2019-07-08 09:28 | NUR ---
rac tech at bedside.
--- NOTE | 2019-07-08 10:19 | NUR ---
Patient discharged to home in stable condition. Written and verbal after care instructions given. Patient verbalizes understanding of instruction.
[2019-07-08 10:22] VITALS: BP 128/72
== END 2019-07-08 10:22 | disposition home or self-care (01) ==
LOC: ER 08:53
DX: J06.9 Acute upper respiratory infection, unspecified (principal)
CPT/HCPCS: 71045-TC

== ENCOUNTER 2020-01-26 08:30 | Emergency (ER) | payer MEDICAID ==
[~2020-01-26] VITALS: Ht 165.1 cm; Wt 59.0 kg
--- NOTE | 2020-01-26 08:40 | NUR ---
c/o abd pain radiating to lower back x 3 days, +N/V 6/10 pain scale. Patient a/ox4, breathing even and unlabored, no sob noted, ambulatory with steady gait. Able to provide a urine sample, sent to lab.
[2020-01-26 09:26] LABS: BASOPHILS % (AUTO) 0.9 % (0.0-2.0); EOSINOPHILS % (AUTO) 1.2 % (0.0-6.0); HEMATOCRIT 42 % (33-45); HEMOGLOBIN 13.8 g/dL (11.5-14.8); LYMPHOCYTES # (AUTO) 0.8 /CMM (0.8-4.8); LYMPHOCYTES % (AUTO) 18.5 % (20.0-44.0); MEAN CORPUSCULAR HGB CONC 33 g/dl (31.0-36.0); MEAN CORPUSCULAR VOLUME 95 fL (82-100); MONOCYTES # (AUTO) 0.4 /CMM (0.1-1.30); MONOCYTES % (AUTO) 8.7 % (2.0-12.0); NEUTROPHILS # (AUTO) 2.9 /CMM (1.8-8.9); NEUTROPHILS % (AUTO) 70.7 % (43.0-81.0); PLATELET COUNT (AUTO) 183 /CMM (150-450); RED BLOOD CELL COUNT(AUTO) 4.38 MIL/uL (4.0-5.2); WHITE BLOOD COUNT (AUTO) 4.1 K/uL (4.3-11.0)
[2020-01-26 09:29] LABS: APPEARANCE,URINE SL CLOUDY (CLEAR); BILIRUBIN,URINE NEGATIVE (NEGATIVE); BLOOD, URINE TRACE-INTA Ery/uL (NEGATIVE); COLOR,URINE YELLOW (YELLOW); KETONES,URINE NEGATIVE (NEGATIVE); LEUKOCYTE ESTERASE ,URINE SMALL (NEGATIVE); NITRITE, URINE NEGATIVE (NEGATIVE); PH,URINE 5.5 (5.0-8.0); PROTEIN,URINE NEGATIVE (NEGATIVE); UGLUCOSE NEGATIVE (NEGATIVE); UROBILINOGEN,URINE 0.2 EU/dL (0.2)
[2020-01-26 09:31] LABS: CALCIUM, SERUM 8.8 mg/dL (8.5-10.1); CREATININE 0.8 mg/dL (0.6-1.3); POTASSIUM 3.9 mmol/L (3.5-5.1)
[2020-01-26] MEDS ORDERED: MORPHINE SULFATE INJ 4 MG/ML DISP.SYRIN ONE (09:38)
[2020-01-26 09:39] LABS: BACTERIA,URINE Moderate /HPF (None Seen); SQUAMOUS EPITHELIAL CELL,UR Moderate /HPF (None Seen)
[2020-01-26 09:51] LABS: ALBUMIN 3.6 g/dL (3.4-5.0); BILIRUBIN,DIRECT 0.1 mg/dL (0.0-0.2); BILIRUBIN,TOTAL 0.5 mg/dL (0.2-1.0); TOTAL PROTEIN, SERUM 7.1 g/dL (6.4-8.2)
--- NOTE | 2020-01-26 09:59 | NUR ---
Patient discharged to home in stable condition. Written and verbal after care instructions given. Patient verbalizes understanding of instruction.
[2020-01-26 10:00] VITALS: BP 115/84
[2020-01-26] MEDS ORDERED: MORPHINE SULFATE INJ 2 MG/ML DISP.SYRIN IV ONE (10:00)
== END 2020-01-26 10:00 | disposition home or self-care (01) ==
LOC: ER 08:35
DX: N93.8 Other specified abnormal uterine and vaginal bleeding (principal); N39.0 Urinary tract infection, site not specified; Z79.899 Other long term (current) drug therapy
CPT/HCPCS: 36415; 76856; 80048; 80076; 81001; 84703; 85025; 87086; 96372; 99284; J2270; 81000-TC

== ENCOUNTER 2020-03-11 11:43 | Emergency (ER) | payer MEDICAID ==
[~2020-03-11] VITALS: Ht 165.1 cm; Wt 57.6 kg
[2020-03-11] MEDS ORDERED: KETOROLAC TROMETHAMINE INJ 30 MG/ML VIAL ONE (12:39)
[2020-03-11] MEDS ORDERED: METOCLOPRAMIDE HCL 10 MG/2 ML VIAL ONE (12:39)
[2020-03-11] MEDS ORDERED: ACETAMINOPHEN ES 500 MG TABLET ONE (12:40)
[2020-03-11] MEDS: IV NS 0.9% 1,000 ML BAG IV ONE (12:45)
[2020-03-11] MEDS: KETOROLAC TROMETHAMINE INJ 30 MG/ML VIAL IV ONE (12:46)
[2020-03-11] MEDS: ACETAMINOPHEN ES 500 MG TABLET PO ONE (12:46)
[2020-03-11] MEDS: METOCLOPRAMIDE HCL 10 MG/2 ML VIAL IV ONE (12:46)
[2020-03-11 12:55] LABS: APPEARANCE,URINE Clear (CLEAR); BILIRUBIN,URINE Negative (NEGATIVE); BLOOD, URINE Trace-lysed Ery/uL (NEGATIVE); COLOR,URINE Yellow (YELLOW); KETONES,URINE Negative (NEGATIVE); LEUKOCYTE ESTERASE ,URINE Trace (NEGATIVE); NITRITE, URINE Negative (NEGATIVE); PROTEIN,URINE Negative (NEGATIVE); UGLUCOSE Negative (NEGATIVE); UROBILINOGEN,URINE 0.2 EU/dL (0.2)
[2020-03-11 12:56] LABS: BACTERIA,URINE Few /HPF (None Seen); SQUAMOUS EPITHELIAL CELL,UR Few /HPF (None Seen)
--- NOTE | 2020-03-11 14:01 | NUR ---
Pt states "feel Better" Patient discharged to home in stable condition. Written and verbal after care instructions given. Patient verbalizes understanding of instruction.
[2020-03-11 14:02] VITALS: BP 110/70
== END 2020-03-11 14:03 | disposition home or self-care (01) ==
LOC: ER 11:47
DX: G43.909 Migraine, unspecified, not intractable, without status migrainosus (principal); R11.0 Nausea; Z79.899 Other long term (current) drug therapy
CPT/HCPCS: 70450; 81001; 84703; 96374; 96375; 99284; J1885; J2765; J7030; 81000-TC

== ENCOUNTER 2020-05-06 22:36 | Emergency (ER) | payer MEDICAID ==
[~2020-05-06] VITALS: Ht 165.1 cm; Wt 57.6 kg
--- NOTE | 2020-05-07 | NUR ---
PT CAME TO THE ER C/O LOWER ABD PAIN W/ N/V W/ THE INABILITY TO HOLD DOWN FOOD FOR THE LAST COUPLE OF DAYS. PT AAOX4, VSS, RESPIRATIONS EVEN AND UNLABORED ON RA W/ NAD NOTED. PT CONNECTED TO THE MONITOR AND POX
[2020-05-07] MEDS ORDERED: ONDANSETRON HCL/PF 4 MG/2 ML VIAL ONE ×2 (00:19→01:51)
[2020-05-07] MEDS ORDERED: ONDANSETRON HCL/PF 4 MG/2 ML VIAL IVP ONE (00:30)
[2020-05-07] MEDS ORDERED: IV NS 0.9% 1,000 ML BAG IV ONE ×2 (00:30→02:30)
[2020-05-07 00:33] LABS: BASOPHILS % (AUTO) 0.8 % (0.0-2.0); EOSINOPHILS % (AUTO) 1.7 % (0.0-6.0); HEMATOCRIT 45 % (33-45); LYMPHOCYTES # (AUTO) 1.6 /CMM (0.8-4.8); LYMPHOCYTES % (AUTO) 33.8 % (20.0-44.0); MEAN CORPUSCULAR HGB CONC 33 g/dl (31.0-36.0); MEAN CORPUSCULAR VOLUME 96 fL (82-100); MONOCYTES # (AUTO) 0.4 /CMM (0.1-1.30); MONOCYTES % (AUTO) 8.4 % (2.0-12.0); NEUTROPHILS # (AUTO) 2.6 /CMM (1.8-8.9); NEUTROPHILS % (AUTO) 55.3 % (43.0-81.0); PLATELET COUNT (AUTO) 233 /CMM (150-450); RED BLOOD CELL COUNT(AUTO) 4.68 MIL/uL (4.0-5.2); WHITE BLOOD COUNT (AUTO) 4.7 K/uL (4.3-11.0)
[2020-05-07 00:37] LABS: CALCIUM, SERUM 9.6 mg/dL (8.5-10.1); CREATININE 0.8 mg/dL (0.6-1.3); POTASSIUM 3.7 mmol/L (3.5-5.1)
[2020-05-07 00:42] LABS: ALBUMIN 4.3 g/dL (3.4-5.0); BILIRUBIN,DIRECT 0.1 mg/dL (0.0-0.2); BILIRUBIN,TOTAL 0.7 mg/dL (0.2-1.0); TOTAL PROTEIN, SERUM 8.2 g/dL (6.4-8.2)
[2020-05-07] MEDS ORDERED: ONDANSETRON HCL/PF 4 MG/2 ML VIAL IV ONE (02:00)
--- NOTE | 2020-05-07 02:53 | NUR ---
URINE COLLECTED AND SENT TO LAB
[2020-05-07 03:04] LABS: BILIRUBIN,URINE Negative (NEGATIVE); BLOOD, URINE Small Ery/uL (NEGATIVE); COLOR,URINE YELLOW (YELLOW); LEUKOCYTE ESTERASE ,URINE Negative (NEGATIVE); NITRITE, URINE Negative (NEGATIVE); PH,URINE 5.5 (5.0-8.0); PROTEIN,URINE Negative (NEGATIVE); UGLUCOSE Negative (NEGATIVE); UROBILINOGEN,URINE 0.2 EU/dL (0.2)
[2020-05-07] MEDS ORDERED: METOCLOPRAMIDE HCL 10 MG/2 ML VIAL ONE (03:21)
[2020-05-07] MEDS ORDERED: METOCLOPRAMIDE HCL 10 MG/2 ML VIAL IV ONE (03:30)
--- NOTE | 2020-05-07 03:49 | NUR ---
REC'D COVID NEGATIVE RESULT
--- NOTE | 2020-05-07 03:59 | NUR ---
Patient discharged to home in stable condition. Written and verbal after care instructions given. Patient verbalizes understanding of instruction.IV removed. Catheter intact and site benign. Pressure and 4x4 applied to site. No bleeding noted.pt. ambulatory with a steady gait
[2020-05-07 04:00] VITALS: BP 112/59
[2020-05-07 04:09] LABS: RBC,URINE 0-2 /HPF (0-2)
[2020-05-07 04:10] LABS: BACTERIA,URINE None seen /HPF (None Seen); SQUAMOUS EPITHELIAL CELL,UR Few /HPF (None Seen); URINE AMORPHOUS URATE Few /HPF (None Seen); WBC,URINE 0-2 /HPF (0-3)
[2020-05-07 04:11] LABS: MUCUS,URINE Many /LPF (None Seen)
== END 2020-05-07 04:00 | disposition home or self-care (01) ==
LOC: ER 22:42
DX: R11.2 Nausea with vomiting, unspecified (principal); R10.30 Lower abdominal pain, unspecified; Z20.828 Contact with and (suspected) exposure to other viral communicable diseases
CPT/HCPCS: 36415; 76856; 80048; 80076; 81001; 83690; 84703; 85025; 87081; 87426; 96361; 96374; 96375; 96376; 99284; C9803; J2405 ×2; J2765; J7030 ×2

== ENCOUNTER 2020-05-27 11:02 | Emergency (ER) | payer MEDICAID ==
[~2020-05-27] VITALS: Ht 165.1 cm; Wt 56.7 kg
[2020-05-27 11:30] VITALS: BP 109/75
== END 2020-05-27 12:25 | disposition home or self-care (01) ==
LOC: ER 11:07
DX: R05 Cough (principal); J02.9 Acute pharyngitis, unspecified; R09.89 Other specified symptoms and signs involving the circulatory and respiratory systems; Z20.828 Contact with and (suspected) exposure to other viral communicable diseases
CPT/HCPCS: 99283; C9803; U0003

== ENCOUNTER 2022-03-11 12:16 | Emergency (ER) | payer MEDICAID ==
[~2022-03-11] VITALS: Ht 165.1 cm; Wt 56.7 kg
[2022-03-11 12:48] VITALS: BP 109/70
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
--- NOTE | 2022-03-11 13:51 | NUR ---
Patient discharged to home in stable condition. Written and verbal after care instructions given. Patient verbalizes understanding of instruction.
== END 2022-03-11 13:52 | disposition home or self-care (01) ==
LOC: ER 12:19
DX: S63.501A Unspecified sprain of right wrist, initial encounter (principal); Z79.899 Other long term (current) drug therapy; W01.0XXA Fall on same level from slipping, tripping and stumbling without subsequent striking against object, initial encounter; Y93.89 Activity, other specified; Y92.89 Other specified places as the place of occurrence of the external cause; Y99.8 Other external cause status
CPT/HCPCS: 73090-TC; 73130-TC

== ENCOUNTER 2022-04-22 16:08 | Emergency (ER) | payer MEDICAID ==
[~2022-04-22] VITALS: Ht 165.1 cm; Wt 56.7 kg
--- NOTE | 2022-04-22 16:39 | NUR ---
BIBSels, C/O CHEST PAIN, INABILITY TO TAKE DEEP BREATHS AND BREATH TIGHTNESS IN AIR WAYS
--- NOTE | 2022-04-22 16:39 | NUR ---
IV ADMIN R A/C GAUGE 20 PATENT FLUSHING INTACT
[2022-04-22] MEDS ORDERED: ACETAMINOPHEN ES 500 MG TABLET PO ONE (17:30)
[2022-04-22] MEDS ORDERED: ACETAMINOPHEN ES 500 MG TABLET ONE (17:36)
[2022-04-22] MEDS ORDERED: ALBU18HF2 INH (18:31)
[2022-04-22 18:36] VITALS: BP 122/67
== END 2022-04-22 18:37 | disposition home or self-care (01) ==
LOC: ER 16:13
DX: R07.89 Other chest pain (principal); Z79.899 Other long term (current) drug therapy
CPT/HCPCS: 71045-TC

== ENCOUNTER 2024-03-17 16:52 | Emergency (ER) | payer MEDICAID ==
[~2024-03-17] VITALS: Ht 165.1 cm; Wt 61.2 kg
[~2024-03-17 16:52] MED LIST changes: +ALBU18HF2 INH
[2024-03-17 16:55] VITALS: BP 125/79; TEMP 98.2
[2024-03-17 17:38] LABS: PREGNANCY TEST URINE QUAL NEGATIVE (NEGATIVE)
[2024-03-17] MEDS ORDERED: TETRAcaine 5 ML BOTTLE ONE (18:29)
[2024-03-17] MEDS: TETRAcaine 5 ML BOTTLE EACHEYE ONE (18:31)
[2024-03-17] MEDS: FLUORESCEIN SODIUM OPHTH 1 EA STRIP OP ONE (18:31)
[2024-03-17] MEDS ORDERED: OFLO5DRO6 RIGHTEYE (18:46)
[2024-03-17 18:52] VITALS: O2SAT 100
== END 2024-03-17 18:53 | disposition home or self-care (01) ==
LOC: ER 16:56
DX: S05.02XA Injury of conjunctiva and corneal abrasion without foreign body, left eye, initial encounter (principal); S05.01XA Injury of conjunctiva and corneal abrasion without foreign body, right eye, initial encounter; S09.8XXA Other specified injuries of head, initial encounter; R10.2 Pelvic and perineal pain; R51.9 Headache, unspecified; H57.89 Other specified disorders of eye and adnexa; Z79.899 Other long term (current) drug therapy; V19.3XXA Pedal cyclist (driver) (passenger) injured in unspecified nontraffic accident, initial encounter; Y93.89 Activity, other specified; Y92.89 Other specified places as the place of occurrence of the external cause; Y99.8 Other external cause status
CPT/HCPCS: 70450-TC; 70480-TC; 84703-TC

== ENCOUNTER 2024-04-17 19:53 | Emergency (ER) | payer MEDICAID ==
[~2024-04-17] VITALS: Ht 165.1 cm; Wt 61.2 kg
[~2024-04-17 19:53] MED LIST changes: +OFLO5DRO6 RIGHTEYE
[2024-04-17] MEDS: IV NS 0.9% 1,000 ML BAG IV ONE ×2 (20:21→20:58)
[2024-04-17] MEDS ORDERED: KETOROLAC TROMETHAMINE 15 MG/ML VIAL ONE (20:22)
[2024-04-17] MEDS ORDERED: ONDANSETRON HCL/PF 4 MG/2 ML VIAL ONE (20:22)
[2024-04-17 20:26] LABS: BASOPHILS % (AUTO) 0.6 % (0.0-2.0); EOSINOPHILS # (AUTO) 0.1 K/uL (0.0-0.7); EOSINOPHILS % (AUTO) 3.8 % (0.0-6.0); HEMATOCRIT 44 % (33-45); HEMOGLOBIN 14.5 g/dL (11.5-14.8); LYMPHOCYTES # (AUTO) 0.8 K/uL (0.8-4.8); MEAN CORPUSCULAR HEMOGLOBIN 32 PG (26.0-33.0); MEAN CORPUSCULAR HGB CONC 33 g/dl (31.0-36.0); MEAN CORPUSCULAR VOLUME 95 fL (82-100); MONOCYTES # (AUTO) 0.4 K/uL (0.1-1.30); MONOCYTES % (AUTO) 10.8 % (2.0-12.0); NEUTROPHILS # (AUTO) 2.2 K/uL (1.8-8.9); NEUTROPHILS % (AUTO) 61.8 % (43.0-81.0); PLATELET COUNT (AUTO) 190 K/uL (150-450); RED BLOOD CELL COUNT(AUTO) 4.61 MIL/uL (4.0-5.2); RED CELL DISTRIBUTION WIDTH 12.3 % (11.5-15.0); WHITE BLOOD COUNT (AUTO) 3.5 K/uL (4.3-11.0)
[2024-04-17] MEDS: KETOROLAC TROMETHAMINE 15 MG/ML VIAL IV ONE (20:29)
[2024-04-17] MEDS: ONDANSETRON HCL/PF 4 MG/2 ML VIAL IVP ONE (20:29)
[2024-04-17 20:35] LABS: CALCIUM, SERUM 9.2 mg/dL (8.5-10.1); CREATININE 0.7 mg/dL (0.6-1.3); POTASSIUM 3.6 mmol/L (3.5-5.1)
[2024-04-17 20:41] LABS: BILIRUBIN,DIRECT 0.2 mg/dL (0.0-0.2); BILIRUBIN,TOTAL 1.2 mg/dL (0.2-1.0); TOTAL PROTEIN, SERUM 7.7 g/dL (6.4-8.2)
[2024-04-17] MEDS ORDERED: CIPR-262 PO (20:53)
[2024-04-17] MEDS ORDERED: ONDA4TAB11 PO (20:53)
[2024-04-17] MEDS: ONDANSETRON HCL/PF 4 MG/2 ML VIAL IV ONE (21:38)
[2024-04-17 22:00] VITALS: BP 105/74; TEMP 98.2; O2SAT 99
== END 2024-04-17 22:04 | disposition home or self-care (01) ==
LOC: ER 19:56
DX: E86.0 Dehydration (principal); R11.2 Nausea with vomiting, unspecified; R50.9 Fever, unspecified; R10.2 Pelvic and perineal pain
CPT/HCPCS: 99284; 96374; 96361; 96375; 96376; 85025; 80048; 83690; 80076; 36415; 84702; J2405 ×2; J7030 ×2; J1885